=== PATIENT | female | born 2000 | race Caucasian/White ===

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

== ENCOUNTER 2020-10-07 16:03 | Emergency (ER) | payer OTHER ==
[~2020-10-07] VITALS: Ht 157.4 cm; Wt 99.8 kg
[2020-10-07 16:35] LABS: BILIRUBIN Negative (Negative); BLOOD 3+ (Negative); CLARITY Turbid (Clear); COLOR Red (Yellow); GLUCOSE Negative (Negative); KETONE Negative (Negative); LEUKO ESTERASE 1+ (Negative); NITRITE Negative (Negative); SPECIFIC GRAVITY 1.015 (1.001-1.030); UROBILINOGEN 0.2 E.U./dl (0.0-1.0)
[2020-10-07 16:47] LABS: BASO % 0.5 % (0.0-1.0); EOS # 0.1 10*3/uL (0.0-0.4); EOS % 1.8 % (1.0-4.0); HEMATOCRIT 41.6 % (37.0-47.0); LYMPH # 1.7 10*3/uL (1.3-4.4); LYMPH % 20.8 % (27.0-41.0); MEAN CORPUSCULAR HGB 29.9 pg (27.0-31.0); MEAN CORPUSCULAR HGB CONC 32.5 g/dl (33.0-37.0); MEAN PLATELET VOLUME 9.6 fl (9.6-12.3); MONO # 0.4 10*3/uL (0.1-1.0); MONO % 5.3 % (3.0-9.0); NEUT # 5.7 10*3/uL (2.3-7.9); NEUT % 71.2 % (47.0-73.0); PLATELET COUNT AUTOMATED 323 10*3/uL (130-400); RED BLOOD COUNT 4.52 10*6/uL (4.10-5.10); RED CELL DISTRI WIDTH 12.8 % (0-14.5)
[2020-10-07 16:54] LABS: BACTERIA 2+; RBC TNTC rbc/hpf (0-2); YEAST 2+
[2020-10-07 17:01] LABS: ALBUMIN 3.4 gm/dl (3.1-4.5); ALKALINE PHOSPHATASE 83 U/L (45-117); BUN 11 mg/dl (7-24); CHLORIDE 110 mmol/L (98-107); LIPASE 68 U/L (73-393); SGOT/AST 17 IU/L (3-35); SGPT/ALT 37 U/L (12-78); SODIUM 140 mmol/L (136-145); TOTAL PROTEIN 7.8 gm/dL (6.4-8.2)
[2020-10-07] MEDS ORDERED: TYLENOL325 M1 PO (17:50)
[2020-10-07] MEDS ORDERED: FLOMAX0.4 MG PO (17:50)
[2020-10-07] MEDS ORDERED: REGLAN10 M1 PO (17:50)
[2020-10-07] MEDS ORDERED: NAPROXEN250 MG PO (17:50)
== END 2020-10-07 18:02 | disposition home or self-care (01) ==
LOC: ED 16:03
PROVIDERS: Emergency Medicine
DX: N13.2 Hydronephrosis with renal and ureteral calculous obstruction (principal); K85.10 Biliary acute pancreatitis without necrosis or infection; I50.9 Heart failure, unspecified; Z87.442 Personal history of urinary calculi

== ENCOUNTER 2022-04-15 04:08 | Emergency (ER) | payer OTHER ==
[~2022-04-15] VITALS: Ht 157.4 cm; Wt 104.3 kg
[~2022-04-15 04:08] MED LIST: FLOMAX0.4 MG PO; NAPROXEN250 MG PO; REGLAN10 M1 PO; TYLENOL325 M1 PO
[2022-04-15] MEDS ORDERED: PREDNISONE20 M1 PO (05:18)
[2022-04-15] MEDS ORDERED: ZITHROMAX250 MG PO (05:18)
== END 2022-04-15 05:30 | disposition home or self-care (01) ==
LOC: ED 04:08
DX: J06.9 Acute upper respiratory infection, unspecified (principal); Z20.822 Contact with and (suspected) exposure to COVID-19; J40 Bronchitis, not specified as acute or chronic

== ENCOUNTER → 2022-07-23 | Outpatient (CLI) | payer MEDICAID ==
[~2022-07-23] MED LIST changes: +PREDNISONE20 M1 PO; +ZITHROMAX250 MG PO
== END | disposition home or self-care (01) ==
LOC: CARD 13:46
PROVIDERS: ATTEND Family Medicine
DX: I07.1 Rheumatic tricuspid insufficiency (principal); R06.09 Other forms of dyspnea; R53.83 Other fatigue

== ENCOUNTER 2023-03-30 04:47 | Emergency (ER) | payer MEDICAID ==
[~2023-03-30] VITALS: Ht 167.6 cm; Wt 106.6 kg
[2023-03-30 05:29] LABS: BILIRUBIN Negative (Negative); BLOOD 1+ (Negative); CLARITY Cloudy (Clear); COLOR Yellow (Yellow); GLUCOSE Negative (Negative); KETONE Trace (Negative); LEUKO ESTERASE Negative (Negative); NITRITE Negative (Negative); PH 5.5 (4.5-8.0); SPECIFIC GRAVITY >= 1.030 (1.001-1.030)
[2023-03-30 05:38] LABS: EPITHELIAL CELLS 31-40
[2023-03-30 05:46] LABS: ACT PARTIAL THROMBO TIME 28.8 SECONDS (20.0-32.1)
[2023-03-30 05:47] LABS: ALKALINE PHOSPHATASE 58 U/L (46-116); BUN 9 mg/dl (9-23); CHLORIDE 110 mmol/L (98-107); LIPASE 31 U/L (12-53); POTASSIUM 3.5 mmol/L (3.4-5.1); SGPT/ALT 13 U/L (5-49); TOTAL PROTEIN 7.4 gm/dL (6.0-8.0)
[2023-03-30 06:07] LABS: BASO % 0.3 % (0.0-1.0); EOS # 0.2 10*3/uL (0.0-0.4); EOS % 1.7 % (1.0-4.0); HEMATOCRIT 37.5 % (37.0-47.0); LYMPH # 2.1 10*3/uL (1.3-4.4); LYMPH % 18.2 % (27.0-41.0); MEAN CORPUSCULAR HGB 31.3 pg (27.0-31.0); MEAN CORPUSCULAR HGB CONC 33.3 g/dl (33.0-37.0); MEAN PLATELET VOLUME 9.9 fl (9.6-12.3); MONO # 0.8 10*3/uL (0.1-1.0); MONO % 6.6 % (3.0-9.0); NEUT # 8.2 10*3/uL (2.3-7.9); NEUT % 71.7 % (47.0-73.0); PLATELET COUNT AUTOMATED 299 10*3/uL (130-400); RED BLOOD COUNT 3.99 10*6/uL (4.10-5.10); RED CELL DISTRI WIDTH 13.1 % (0-14.5); WHITE BLOOD COUNT 11.5 10*3/uL (4.8-10.8)
[2023-03-30] MEDS ORDERED: CARAFATE1 G1 PO (10:45)
== END 2023-03-30 11:03 | disposition home or self-care (01) ==
LOC: ED 04:47
PROVIDERS: Internal Medicine
DX: O26.891 Other specified pregnancy related conditions, first trimester (principal); K21.9 Gastro-esophageal reflux disease without esophagitis; K82.8 Other specified diseases of gallbladder; O21.9 Vomiting of pregnancy, unspecified; R10.2 Pelvic and perineal pain; Z3A.01 Less than 8 weeks gestation of pregnancy

== ENCOUNTER 2024-08-14 05:45 | Emergency (ER) | payer MEDICAID ==
[~2024-08-14] VITALS: Ht 157.5 cm; Wt 117.9 kg
[~2024-08-14 05:45] MED LIST changes: +CARAFATE1 G1 PO
[2024-08-14] MEDS ORDERED: SEMAGLUTID SQ (05:54)
[2024-08-14] MEDS ORDERED: IOHEXOL 300 MG/ML 100 ML VIAL IV ONE (06:10)
[2024-08-14] MEDS ORDERED: SODIUM CHLORIDE 0.9% 1,000 ML IV ONE (06:10)
[2024-08-14] MEDS ORDERED: Ondansetron Hydrochloride 4 MG/2 ML VIAL IV ONE (06:10)
[2024-08-14] MEDS ORDERED: MORPHINE Sulfate 2 MG/ML SYR IV ONE (06:10)
[2024-08-14 06:26] LABS: BASO # 0.1 10*3/uL (0.0-0.1); BASO % 0.7 % (0.0-1.0); EOS # 0.5 10*3/uL (0.0-0.4); EOS % 7.8 % (1.0-4.0); MEAN CORPUSCULAR HGB 29.7 pg (27.0-31.0); MEAN CORPUSCULAR HGB CONC 32.3 g/dl (33.0-37.0); MEAN PLATELET VOLUME 9.4 fl (9.6-12.3); MONO # 0.4 10*3/uL (0.1-1.0); NEUT # 3.6 10*3/uL (2.3-7.9); NEUT % 51.7 % (47.0-73.0); PLATELET COUNT AUTOMATED 320 10*3/uL (130-400); RED BLOOD COUNT 4.35 10*6/uL (4.10-5.10); RED CELL DISTRI WIDTH 13.8 % (0-14.5); WHITE BLOOD COUNT 6.9 10*3/uL (4.8-10.8)
[2024-08-14 06:42] LABS: ALKALINE PHOSPHATASE 83 U/L (46-116); BUN 9 mg/dl (9-23); CHLORIDE 106 mmol/L (98-107); LIPASE 34 U/L (12-53); POTASSIUM 3.6 mmol/L (3.4-5.1); SGPT/ALT 58 U/L (5-49); TOTAL PROTEIN 7.5 gm/dL (6.0-8.0)
[2024-08-14 07:11] LABS: BILIRUBIN Negative (Negative); BLOOD 1+ (Negative); CLARITY Clear (Clear); COLOR Yellow (Yellow); GLUCOSE Negative (Negative); KETONE Trace (Negative); LEUKO ESTERASE Negative (Negative); NITRITE Negative (Negative); PH 6.5 (4.5-8.0)
[2024-08-14 07:23] LABS: BACTERIA 1+; CALCIUM OXALATE CRYSTALS Trace; MUCOUS 1+
[2024-08-14] MEDS ORDERED: Ondansetron4 MG PO (09:52)
[2024-08-14] MEDS ORDERED: DICYCLOMINE HYD20 MG PO (09:52)
[2024-08-14] MEDS ORDERED: CIPRO500 MG PO (09:52)
== END 2024-08-14 09:55 | disposition home or self-care (01) ==
LOC: ED 05:45
PROVIDERS: Internal Medicine
DX: R10.9 Unspecified abdominal pain (principal); R11.2 Nausea with vomiting, unspecified; Z87.442 Personal history of urinary calculi; Z79.899 Other long term (current) drug therapy

== ENCOUNTER 2024-11-08 13:29 | Emergency (ER) | payer MEDICAID ==
[~2024-11-08] VITALS: Ht 160 cm; Wt 117.9 kg
[~2024-11-08 13:29] MED LIST changes: +CIPRO500 MG PO; +DICYCLOMINE HYD20 MG PO; +Ondansetron4 MG PO; +SEMAGLUTID SQ
[2024-11-08] MEDS ORDERED: SODIUM CHLORIDE 0.9% 1,000 ML IV ONE (13:50)
[2024-11-08] MEDS ORDERED: Promethazine Hydrochloride 25 MG/ML VIAL IV ONE (13:50)
[2024-11-08 13:52] LABS: BILIRUBIN Negative (Negative); BLOOD 3+ (Negative); CLARITY Clear (Clear); COLOR Yellow (Yellow); KETONE Negative (Negative); LEUKO ESTERASE Trace (Negative); NITRITE Negative (Negative); PH 7.5 (4.5-8.0); SPECIFIC GRAVITY 1.015 (1.001-1.030); UROBILINOGEN 1.0 E.U./dl (0.0-1.0)
[2024-11-08] MEDS ORDERED: IOHEXOL 300 MG/ML 100 ML VIAL IV ONE (13:55)
[2024-11-08 14:03] LABS: BACTERIA TRACE; RBC TNTC rbc/hpf (0-2)
[2024-11-08 14:26] LABS: BUN 11 mg/dl (9-23)
[2024-11-08 14:27] LABS: BASO # 0.1 10*3/uL (0.0-0.1); BASO % 1.0 % (0.0-1.0); EOS # 0.2 10*3/uL (0.0-0.4); EOS % 3.3 % (1.0-4.0); MEAN CELL VOLUME 94.1 fl (81.0-99.0); MEAN CORPUSCULAR HGB 30.5 pg (27.0-31.0); MEAN PLATELET VOLUME 9.9 fl (9.6-12.3); MONO # 0.5 10*3/uL (0.1-1.0); MONO % 7.1 % (3.0-9.0); NEUT # 4.4 10*3/uL (2.3-7.9); NEUT % 62.9 % (47.0-73.0); NUCLEATED RED BLOOD CELL 0.0 % (0.0-0.0); NUCLEATED RED BLOOD CELL 0.0 10*3/uL (0.0-0.0); PLATELET COUNT AUTOMATED 320 10*3/uL (130-400); RED CELL DISTRI WIDTH 13.2 % (0-14.5)
[2024-11-08] MEDS ORDERED: FLOMAX0.4 MG PO (15:26)
[2024-11-08] MEDS ORDERED: Ondansetron4 MG PO (15:26)
[2024-11-08] MEDS ORDERED: NAPROSYN500 MG PO (15:26)
[2024-11-08] MEDS ORDERED: PERCOCET 5-3251 EACH PO (15:26)
== END 2024-11-08 15:33 | disposition home or self-care (01) ==
LOC: ED 13:29
PROVIDERS: Nurse Practitioner Family
DX: N13.9 Obstructive and reflux uropathy, unspecified (principal); N20.0 Calculus of kidney

== ENCOUNTER 2025-01-31 19:01 | Emergency (ER) | payer OTHER, MEDICAID ==
[~2025-01-31] VITALS: Ht 157.4 cm; Wt 117.9 kg
[~2025-01-31 19:01] MED LIST changes: +NAPROSYN500 MG PO; +PERCOCET 5-3251 EACH PO
[2025-01-31] MEDS ORDERED: METHOCARBAMOL500 M1 PO (20:13)
[2025-01-31] MEDS ORDERED: NAPROXEN250 MG PO (20:13)
== END 2025-01-31 20:23 | disposition home or self-care (01) ==
LOC: ED 19:01
DX: S40.012A Contusion of left shoulder, initial encounter (principal); R51.9 Headache, unspecified; V89.2XXA Person injured in unspecified motor-vehicle accident, traffic, initial encounter; Y93.89 Activity, other specified; Y92.410 Unspecified street and highway as the place of occurrence of the external cause; Y99.8 Other external cause status

== ENCOUNTER 2025-03-26 13:21 | Emergency (ER) | payer MEDICAID ==
[~2025-03-26] VITALS: Ht 157.4 cm; Wt 122.5 kg
[~2025-03-26 13:21] MED LIST changes: +METHOCARBAMOL500 M1 PO
[2025-03-26 14:03] LABS: BASO # 0.1 10*3/uL (0.0-0.1); BASO % 0.8 % (0.0-1.0); EOS # 0.2 10*3/uL (0.0-0.4); EOS % 2.5 % (1.0-4.0); MEAN CELL VOLUME 93.7 fl (81.0-99.0); MEAN CORPUSCULAR HGB 30.3 pg (27.0-31.0); MEAN PLATELET VOLUME 9.4 fl (9.6-12.3); MONO # 0.6 10*3/uL (0.1-1.0); MONO % 6.2 % (3.0-9.0); NEUT # 6.3 10*3/uL (2.3-7.9); NEUT % 66.8 % (47.0-73.0); NUCLEATED RED BLOOD CELL 0.0 % (0.0-0.0); NUCLEATED RED BLOOD CELL 0.0 10*3/uL (0.0-0.0); PLATELET COUNT AUTOMATED 403 10*3/uL (130-400); RED CELL DISTRI WIDTH 12.9 % (0-14.5)
[2025-03-26 14:32] LABS: BUN 11 mg/dl (9-23); SGPT/ALT 67 U/L (5-49)
[2025-03-26 14:34] LABS: BILIRUBIN Negative (Negative); BLOOD 2+ (Negative); CLARITY Clear (Clear); COLOR Yellow (Yellow); KETONE Negative (Negative); LEUKO ESTERASE Negative (Negative); NITRITE Negative (Negative); PH 5.5 (4.5-8.0); SPECIFIC GRAVITY >= 1.030 (1.001-1.030); UROBILINOGEN 0.2 E.U./dl (0.0-1.0)
[2025-03-26 14:47] LABS: RBC 31-40 rbc/hpf (0-2); WBC 0-2 wbc/hpf (0-5)
[2025-03-26] MEDS ORDERED: Dicyclomine Hydrochloride 10 MG CAP PO ONE (15:35)
[2025-03-26] MEDS ORDERED: DICYCLOMINE HYD10 MG PO (15:37)
[2025-03-26] MEDS ORDERED: Ondansetron4 MG PO (15:38)
== END 2025-03-26 15:42 | disposition home or self-care (01) ==
LOC: ED 13:21
PROVIDERS: Nurse Practitioner Family
DX: K52.9 Noninfective gastroenteritis and colitis, unspecified (principal); R10.9 Unspecified abdominal pain